=== PATIENT | male | born 1945 | race Caucasian/White ===

== ENCOUNTER → 2016-04-05 | Outpatient (CLI) | payer MEDICARE ==
--- NOTE | 2016-04-05 15:33 | KCIC ---
PROCEDURE Two-view chest HISTORY Productive cough for 2 weeks COMPARISON July 10, 2013 FINDINGS Two PA views of the chest and single lateral view of the chest are submitted. There are again thoracic spinal stimulator leads noted. There is now left base infiltrate, airspace opacity greater than previously. There is suspected emphysema. Heart size is stable, considered within normal limits. There is no pneumothorax or significant dependent pleural fluid. IMPRESSION There is left base infiltrate for which followup after treatment advised. Electronically signed by: Leonid Babcock MD (Apr 05, 2016 15:32:21)
== END | disposition home or self-care (01) ==
LOC: KCIC 14:31
PROVIDERS: ATTEND Family Medicine
DX: R91.8 Other nonspecific abnormal finding of lung field (principal)
CPT/HCPCS: 71020

== ENCOUNTER → 2016-04-15 | Outpatient (CLI) | payer MEDICARE ==
[~2016-04-15] MED LIST: IOHEXOL 300 MG/ML 100ML VIAL. IV ONE; OMEP20CA9 PO; RANI75TA95 PO; ZOLP5TAB PO
--- NOTE | 2016-04-15 16:19 | KCIC ---
PROCEDURE CT chest with without contrast. HISTORY Neoplasm hypopharynx. Pneumonia. TECHNIQUE Helical CT imaging of the chest is performed before and after 95 cc of Omnipaque 300 IV contrast. PQRS: One or more the following individualized dose reduction techniques were utilized for the study: 1. Automated exposure control. 2. Adjustment of the mA and/or kV according to patient size. 3. Use of iterative reconstruction technique. COMPARISON Two-view chest April 05, 2016. FINDINGS There are sub centimeter mediastinal and left hilar lymph nodes. No adenopathy in the chest. Three vessel coronary artery disease. The great vessels are normal caliber. No large central pulmonary embolus is seen. Cardiac size normal, no pericardial effusion. No pleural effusion. The central airways patent. Mild biapical pleural parenchymal scarring. There is mild upper lobe centrilobular emphysema. There are reticular nodular tree-in-bud opacities in the basilar left lower lobe. Opacities in the left lower lobe appear mildly improved compared to the prior two-view chest. Lungs are otherwise clear. Paramediastinal bulla are seen. Small left Zenker's diverticulum contains air. The visualized upper abdomen is unremarkable. Dorsal column stimulator is seen. There is degenerative endplate spurring in the thoracic spine. No loss of vertebral body height. IMPRESSION There are tree in bud opacities in the basilar left lower lobe suggestive of nonspecific bronchiolitis. Recommend CT chest follow up in a couple of months to document resolution. Electronically signed by: Ortiz Travis MD (Apr 15, 2016 16:18:04)
== END | disposition home or self-care (01) ==
LOC: KCIC CT 13:53
PROVIDERS: ATTEND Family Medicine
DX: J06.0 Acute laryngopharyngitis (principal); J18.9 Pneumonia, unspecified organism; I25.10 Atherosclerotic heart disease of native coronary artery without angina pectoris; J43.2 Centrilobular emphysema; K22.5 Diverticulum of esophagus, acquired; R23.8 Other skin changes
CPT/HCPCS: 71270; 82565; Q9967

== ENCOUNTER → 2017-06-06 | Outpatient (CLI) | payer MEDICARE | END | disposition home or self-care (01) | LOC: RAD 15:33 | DX: R50.9 Fever, unspecified (principal); R91.8 Other nonspecific abnormal finding of lung field | CPT/HCPCS: 71046 ==

== ENCOUNTER → 2017-06-09 | Outpatient (CLI) | payer MEDICARE | END | disposition home or self-care (01) | LOC: KCIC CT 11:03 | DX: J18.9 Pneumonia, unspecified organism (principal); Z85.818 Personal history of malignant neoplasm of other sites of lip, oral cavity, and pharynx | CPT/HCPCS: 71250 ==

== ENCOUNTER 2017-12-09 22:32 | Emergency (ER) | payer MEDICARE ==
[~2017-12-09] VITALS: Ht 177.8 cm; Wt 81.6 kg
[~2017-12-09 22:32] MED LIST changes: -IOHEXOL 300 MG/ML 100ML VIAL. IV ONE
--- NOTE | 2017-12-09 23:34 | PHYS DOC ---
Past Medical History Past Medical History: Cancer, GERD, Hypothyroid Additional Past Medical Histor: THROAT CANCER Past Surgical History: Other Additional Past Surgical Histo: L ANKLE, SPINAL Smoking: Quit Greater Than 1 Year Alcohol Use: Sober Additional Information: 17 YEARS SOBER Drug Use: None Adult General Chief Complaint Chief Complaint: FINGER INJURY HPI HPI Patient is a 72 year old male presenting after a mechanical fall. Patient notes this evening he was walking around the back of his vehicle when he tripped over the trailer hitch. Patient denies hitting his head when he fell. Patient denies loss of consciousness, headache, vomiting, dizziness, trouble with ambulation. Patient notes he hit his arm into his glasses which resulted in a laceration to the right supraorbital region. Patient notes when he fell he tried to brace himself and injured his left middle finger. Patient has been unable to bend the left middle finger since the fall. The patient notes that the rest of his fingers and hand, wrist, and arm were uninjured. The patient notes he has some pain on the right side of his thorax that increases with deep breathing since the fall. The patient denies any focal tenderness in this area. The patient notes he thinks he pulled a muscle which resulted in less pain. Patient notes he also has a small abrasion on the aspect of his right hand and right tomas. Review of Systems Review of Systems Constitutional: Denies fever or chills [] Eyes: Denies change in visual acuity, redness, or eye pain [] HENT: Denies nasal congestion or sore throat [] Respiratory: Denies cough or shortness of breath [] Cardiovascular: No chest pain or palpitations[] GI: Denies abdominal pain, nausea, vomiting, bloody stools or diarrhea [] : Denies dysuria or hematuria [] Musculoskeletal: Denies back pain or myalgias [] Integument: Denies rash. Notes abrasions to his right hand and right tomas and a laceration to his right eyebrow [] Neurologic: Denies headache, focal weakness or sensory changes [] Complete systems were reviewed and found to be within normal limits, except as documented in this note. Family History Family History Noncontributory Current Medications Current Medications Current Medications Medications (Trade) Dose Ordered Sig/Bjorn Start Time Stop Time Status Last Admin Dose Admin Lidocaine/ Epinephrine (LIDOCAINE 2%-EPI 1:100,000 multi-dose) 20 ml 1X ONCE 12/09/17 23:45 12/09/17 23:46 DC 12/10/17 00:34 20 ML Neomycin/ Polymyxin/ Bacitracin (Triple Antibiotic Ointment) 1 pkt 1X ONCE 12/10/17 02:00 12/10/17 02:01 DC 12/10/17 01:45 1 PKT Allergies Allergies Allergies Coded Allergies Type Severity Reaction Last Updated Verified No Known Drug Allergies 04/15/16 No Physical Exam Physical Exam Constitutional: Well developed, well nourished, no acute distress, non-toxic appearance. [] HENT: Normocephalic, bilateral external ears normal, oropharynx moist, no oral exudates, nose normal. [] Eyes: PERRL, EOMI, conjunctiva normal, no discharge. [] Neck: Normal range of motion, no tenderness, supple, no meningeal signs [] Cardiovascular:Heart rate regular rhythm, no murmur [] Lungs & Thorax: Bilateral breath sounds clear to auscultation. Nonfocal tenderness over the right pectoral region. No signs of trauma present.[] Abdomen: soft, nondistended, no tenderness. [] Skin: Warm, dry, no erythema, no rash. 2 cm laceration over the right supraorbital region within the eyebrow. No active bleeding. Two 0.5 cm abrasions on the medial right hand. 1 cm abrasion on the anterior right tomas [] Back: No tenderness, no CVA tenderness. [] Extremities: Left middle finger edema, erythema. Normal range of motion and no tenderness of left wrist and MCP joints of left hand. PIP on left middle finger has no range of motion and is tender to palpation. Left middle finger is neurovascularly intact. Patient able to oppose left thumb and make okay sign with left hand. Entire right extremity full range of motion, neurovascularly intact, bilateral lower extremities full range of motion, neurovascularly intact , no tenderness.[] Neurologic: Alert and oriented X 3, normal motor function, normal sensory function, no focal deficits noted. [] Psychologic: Affect normal, judgement normal, mood normal. [] Current Patient Data Vital Signs Vital Signs Date Time Temp Pulse Resp B/P (MAP) Pulse Ox O2 Delivery O2 Flow Rate FiO2 12/09/17 22:40 98.0 66 18 136/74 (94) 99 Room Air 98.0 EKG EKG [] Radiology/Procedures Radiology/Procedures Left hand x-ray- (preliminary interpretation by ED physician) no signs of any acute bony abnormality, evidence of dislocated PIP on the left third finger.. Right rib x-ray- (preliminary interpretation by ED physician)- no signs of any acute bony abnormality, no signs of pneumothorax. Course & Med Decision Making Course & Med Decision Making 72-year-old male presenting after mechanical fall in his glasses hit his arm and lacerated his right eyebrow, patient also dislocated his DIP joint on his left third phalanges. Patient denies hitting his head, or loss of consciousness during the fall. Patient had some right-sided thoracic tenderness. Acquired and reviewed x-rays of his left hand which showed a dislocated PIP and right rib x- ray which did not show any signs of rib fracture or pneumothorax. Reduce the patient's finger and repaired the laceration.Patient stable for discharge with outpatient follow-up with PCP and orthopedic surgeon. Discussed findings and plan with patient and family, who acknowledge understanding and agreement. [] Dragon Disclaimer Dragon Disclaimer This electronic medical record was generated, in whole or in part, using a voice recognition dictation system. Departure Departure Impression: Primary Impression: Eyebrow laceration Additional Impression: Finger dislocation Disposition: 01 HOME, SELF-CARE Condition: STABLE Referrals: REN MILLER MD (PCP) RAY VARELA MD Patient Instructions: Finger Dislocation, [id number], Laceration Care, Adult , Meck-gy-Clld Additional Instructions: Do not soak your wound. You may shower. Clean wound daily with soap and water. Change dressing 2 times daily. Use over the counter antibiotic ointment with each dressing change. Sutures need to be removed in 5 days. Present to your family doctor or local urgent care for removal. You may also present to the ED but it will be an additional visit/charge. After suture removal you may use Vitamin E ointment to soften the wound and prevent scarring. Splinting Splinting : Location: left third finger Pre-Made Type: metal Splint: volar Pre-Proc Neuro Vasc Exam: normal Post-Proc Neuro Vasc Exam: normal Joint Reduction Joint Reduction : Conscious Sedation: No Reduction Attempts: 1 Pre-Procedure NV Exam: Yes Post-Procedure NV Exam: Yes Progress Patient's left third finger PIP joint reduction. Local anesthetic with 5 mL 2% lidocaine digital block Laceration/Wound Repair Laceration/Wound Repair : Wound Location: face (supraorbital right eyebrow) Wound's Depth, Shape: superficial Wound Length (cm): 2 Wound Explored: no foreign body removed Irrigated w/ Saline (ccs): 300 Betadine Prep?: Yes Anesthesia: Lidocaine w/ Epi Volume Anesthetic (ccs): 2 Wound Debrided: minimal Wound Repaired With: sutures Suture Size/Type: 5:0, nylon Number of Sutures: 4 Sterile Dressing Applied?: No Splint Applied?: No Sling Applied?: No Problem Qualifiers Primary Impression: Eyebrow laceration Encounter type: initial encounter Laterality: right Qualified Codes: S01.111A - Laceration without foreign body of right eyelid and periocular area, initial encounter Additional Impression: Finger dislocation Encounter type: initial encounter Qualified Codes: S63.259A - Unspecified dislocation of unspecified finger, initial encounter LISA RICARDO DO Dec 09, 2017 23:34
[2017-12-09] MEDS ORDERED: LIDOCAINE 2%/EPI 1:100,000 20 ML VIAL. IJ ONE (23:45)
[2017-12-10 01:15] VITALS: BP 157/75
[2017-12-10] MEDS ORDERED: NEOMY/BACITR/POLYMYXIN OINT PACKET. TP ONE (02:00)
--- NOTE | 2017-12-10 07:52 | RAD ---
Portable left hand, 3 views, 12/09/2017: HISTORY: Fall, pain There is slight malalignment of the middle finger at the PIP joint level compatible subluxation. This consists of slight dorsal and ulnar displacement of the proximal end of the middle phalanx relative to the distal end of the proximal phalanx. No acute fracture is identified. IMPRESSION: Subluxation of the third finger at the PIP joint. Electronically signed by: Omi Guevara MD (12/10/2017 7:49 AM) [facility]
--- NOTE | 2017-12-10 08:28 | RAD ---
Right RIBS with chest, 3 views, 12/09/2017: HISTORY: Fall, rib pain No rib fracture is identified. There is no evidence of underlying pneumothorax, hemothorax or pulmonary infiltrate. The heart size is normal. Spinal stimulator leads extend into the lower thoracic spinal canal. IMPRESSION: No acute right rib abnormality is detected. Electronically signed by: Omi Guevara MD (12/10/2017 8:25 AM) [facility]
== END 2017-12-10 01:50 | disposition home or self-care (01) ==
LOC: ER 22:32
DX: S63.283A Dislocation of proximal interphalangeal joint of left middle finger, initial encounter (principal); S01.111A Laceration without foreign body of right eyelid and periocular area, initial encounter; R07.81 Pleurodynia; E03.9 Hypothyroidism, unspecified; K21.9 Gastro-esophageal reflux disease without esophagitis; Z87.891 Personal history of nicotine dependence; W18.09XA Striking against other object with subsequent fall, initial encounter; Y93.01 Activity, walking, marching and hiking; Y92.89 Other specified places as the place of occurrence of the external cause; Y99.8 Other external cause status
CPT/HCPCS: 12011; 26770; 71101; 73140; 99284; J3490

== ENCOUNTER → 2017-12-15 | Outpatient (CLI) | payer MEDICARE ==
[2017-12-10 01:15] VITALS: BP 157/75
[~2017-12-15] MED LIST changes: +IOHEXOL 300 MG/ML 50 ML VIAL. INT ART ONE; +LIDOCAINE 1% Multi-Dose 20 ML VIAL. ID ONE
--- NOTE | 2017-12-15 13:14 | KCIC ---
EXAM: Right glenohumeral joint injection WITH Fluoroscopic guidance DATE: 12/15/2017 10:30 AM CLINICAL HISTORY: Sharp right shoulder pain for 2 months COMPARISON: None pertinent TECHNIQUE: The patient was informed of the indications and alternatives for this procedure as well as risks and benefits. No immediate contraindication identified. The patient provided informed, written consent. Laterality was confirmed by the entire team following a time out. Following initial right glenohumeral joint localization, a suitable area was sterilely prepped and draped. Local anesthesia was administered with 1% xylocaine. With intermittent fluoroscopic observation, a 22-gauge spinal needle was advanced into the right glenohumeral joint sheath/capsule with confirmation of intra-synovial position with infusion of less than 1 cc iodinated contrast. Subsequent infusion 12 mL of a cocktail containing 9 mL Isovue-300, 6 mL of saline and 5 mL of lidocaine 1%. Hemostasis with local pressure. Local clinical exam negative for immediate complication. Patient informed re local potential signs or symptoms that may indicate need to return to ER/Ordering physician for further evaluation. Patient informed re precautionary measures after intra-synovial injection of anesthetic. Patient expressed understanding. Performing Physicians: Dr. Dariel Garcia Blood Loss: 0 cc Total Fluoroscopy time: 9 seconds Total spot images taken: 0 Total fluoroscopy save images taken: 4 IMPRESSION: Successful intra-synovial injection of iodinated contrast pre-CT arthrogram per clinical request. Electronically signed by: Paulo Garcia MD (12/15/2017 1:11 PM) [facility]
--- NOTE | 2017-12-15 15:23 | KCIC ---
EXAM: CT ARTHROGRAM, right shoulder DATE: 12/15/2017 11:30 AM CLINICAL HISTORY: Right shoulder pain COMPARISON: None TECHNIQUE: Following intra-articular injection of dilute iodinated contrast, axial source images were obtained through the right shoulder. Coronal and sagittal reformatted images were generated. FINDINGS: Joint capsule: Iatrogenic distention without synovial nodularity. No intra-articular loose body. Periarticular fluid: Negative ganglion. There is contrast distention of the subacromial-subdeltoid bursa. Tendon integrity: There is a full-thickness tear of the anteriormost fibers of the supraspinatus tendon measuring approximately 1.2 cm in AP dimension. This results in contrast extension from the joint into the subacromial-subdeltoid bursa. There is no fatty atrophy of the rotator cuff muscle belly. Biceps tendon intact, anatomically positioned at the bicipital groove. Labrum: There is partial contrast extension between the labral-chondral junction of the anterior inferior glenoid which may represent prominent sulcus or short segment partial labral detachment. Articular cartilage: Mild anterior inferior glenoid chondral thinning without discrete full-thickness defect. Bone: Negative Hill-Sachs defect. Minimal AC joint osteoarthritis. Type I acromial undersurface and negative lateral downsloping. Negative inferior acromial enthesophyte. Negative imaging findings of fracture or AVN. Mild emphysematous changes at the right lung are partially profiled. IMPRESSION: 1. Short segment full-thickness rotator cuff tear of the anterior fibers of the supraspinatus tendon. 2. This results in contrast leakage into the subacromial-subdeltoid bursa. 3. Partial contrast extension between the labrum and cartilage of the anterior inferior glenoid, possibly prominent sulcus or short segment partial labral detachment. Electronically signed by: Paulo Garcia MD (12/15/2017 3:20 PM) [facility]
== END | disposition home or self-care (01) ==
LOC: KCIC 10:16
PROVIDERS: ATTEND Orthopaedic Surgery
DX: M75.101 Unspecified rotator cuff tear or rupture of right shoulder, not specified as traumatic (principal)
CPT/HCPCS: 73040; 73201; Q9967

== ENCOUNTER → 2017-12-30 | Outpatient (CLI) | payer MEDICARE ==
[2017-12-10 01:15] VITALS: BP 157/75
[~2017-12-30] MED LIST changes: -IOHEXOL 300 MG/ML 50 ML VIAL. INT ART ONE; -LIDOCAINE 1% Multi-Dose 20 ML VIAL. ID ONE; +REGADENOSON 0.4 MG/5 ML DISP.SYRIN. IV ONE
--- NOTE | 2017-12-30 13:07 | RAD ---
MR#: [id number] Date of Study: 12/30/2017 Ordering Physician: ANGELITA LUNA, Referring Physician: CANDE PARK Tech: BENJI Herrera APPROVED REPORT Test Type: Pharmacological Stress Nurse/Tech: Marybeth Rodriguez R.N. Test Indications: chest pain Cardiac History: High cholesterol Medications: Zocor Medical History: See Electronic Medical Record Resting ECG: s. ulises Resting Heart Rate: 47 bpm Resting Blood Pressure: 139/74mmHg Pretest Chest Pain: No chest pain Nurse/Tech Notes S1S2, lungs sound clear Consent: The procedure was explained to the patient in lay terms. Informed consent was witnessed. Augustus eout was entered into [employer]. History and Stress Test performed by Marybeth Rodriguez R.N. Pharm. Details Pharmacologic stress testing was performed using 0.4mg per 5ml of regadenoson given intravenously ove r 7-10 seconds. Stress Symptoms No chest pain or symptoms. POST EXERCISE Reason for Termination: Infusion complete Target HR: 124 Max HR: 61 bpm Max Blood Pressure: 115/69mmHg Blood Pressure response to exercise: Normal blood pressure response during stress. Chest Pain: No. Arrhythmia: No. ST Change: No. INTERPRETATION Stress EKG Conclusion: Baseline EKG showed sinus rhythm. No ischemic changes at peak stress. No arr hythmias. Imaging Protocol IMAGE PROTOCOL: Rest Tc-99m/stress Tc-99m 1 day Rest: Stress: Viability: Radiopharm.Tc99m [id number] Sestamibi Zyrm09zHm 33.1mCi Duration 17min. 13min. Img Date 12/30/2017 12/30/2017 Inj-Img [id number]. 60min. Rest Admin Site:IV - Right AntecubitalAdministrator:RENE Jose, ARRT (R)(N) Stress Admin Site: IV - Right AntecubitalAdministrator: RENE Jose, ARRT (R)(N) STRESS DATA End Diast. Vol.89.0mlLVEDV index BSA44.0ml End Syst. Vol.27.0mlLVESV index BSA13.0ml Myocardial Qgos509.0gEject. Keggccbh62.0% Stress Scores Regional WT1.00Summed WT17.00 Regional WM0.00Summed WM3.00 Study quality was good. Left Ventricular size was Normal at Rest and Stress. Lung uptake was . Left Ventricular ejection fraction is 70%. The rest and stress images show normal perfusion, normal contraction and thickening. LV Perf. Quant 17 Seg. SSS2.00 17 Seg. SRS0.00 17 Seg. SDS2.00 Stress Defect Extent (% LAD)0.00Rest Defect Extent (% LAD)0.00Rev. Defect Extent (% LAD)0.00 Stress Defect Extent (% LCX) 7.50Rest Defect Extent (% LCX)0.00Rev. Defect Extent (% LCX)7.50 Stress Defect Extent (% RCA)0.00Rest Defect Extent (% RCA)0.00Rev. Defect Extent (% RCA)0.00 Stress Defect Extent (% MYA)2.40Rest Defect Extent (% MYA)0.00Rev. Defect Extent (% MYA)2.40 Conclusion 1. Regadenoson cardioisotope stress test did not show any evidence of ischemia or infarct. 2. Normal left ventricular systolic function with ejection fraction calculated at 70%. 3. Low risk for cardiac events. Signed by : Herson Luo, Electronically Approved : 12/30/2017 13:05:48
== END | disposition home or self-care (01) ==
LOC: NM 09:47
PROVIDERS: ATTEND Internal Medicine Cardiovascular Disease
DX: R07.9 Chest pain, unspecified (principal); E78.00 Pure hypercholesterolemia, unspecified
CPT/HCPCS: 78452; 93017; 96374; 96375; 96376; A9500; J2785

== ENCOUNTER → 2018-08-30 | Outpatient (CLI) | payer MEDICARE ==
[~2018-08-30] MED LIST changes: +GABA300C18 PO; +LATA2.5D3 EACHEYE; +LEVO125T5 PO; +LOVA20TA2 PO; +NAPR220C4 PO; +OMEP20CA10 PO; -OMEP20CA9 PO; +OMEP40CA5 PO; +RANI-348 PO; +RANI150T2 PO; -RANI75TA95 PO; -REGADENOSON 0.4 MG/5 ML DISP.SYRIN. IV ONE; +TIMO5SOL4 EACHEYE
--- NOTE | 2018-08-31 07:30 | PAIN ---
DATE OF SERVICE: 08/30/2018 INITIAL CONSULTATION FOR PAIN CLINIC CHIEF COMPLAINT: Low back and right lower extremity pain. HISTORY OF PRESENT ILLNESS: This is a 73-year-old male who presents with history of pain in the low back and right leg since about 1989. The patient had lumbar surgery in 1998 and after multiple years of pain and eventually had a spinal cord stimulator placed in 2004 and eventually, the paraesthesia became somewhat uncomfortable. He stopped using it for several years and turned it on recently over the past year and started using it again, which he feels that it has been helpful but not 100% and he has to turn it up so high that it becomes uncomfortable again. The patient has talked with his [employer] aircraft sales representative and they have tuned it as best they can. Again, it is an older model generator and is doing all they can at this point. The patient reports the pain is constant, sharp, stabbing, throbbing, shooting in the low back, right hip, posterior gluteus, posterior thigh, lateral thigh and posterior calf on the right side specifically. Left side is generally pain free, is worse with walking, standing, changing positions. Again the stimulator is only staying charged for about a day or two after he charged it. The patient reports it is awakening him from sleep at night at least once or twice, does not affect his bowel or bladder control but does affect his ability to walk, although he is not using any assistive devices. The patient has had in the past epidural injections, trigger point injections, physical therapy, multiple times, chiropractic treatments multiple times and again the spinal cord stimulator, which was placed in 2004. The patient rates his disability from 0-10, 10 being the worst, is a 6-7 with family home responsibilities and recreation, 6 with social activity, occupation and sexual behavior, 2 with self-care and 1 with life support activities. 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 PAST SURGICAL HISTORY: Previous surgeries include lumbar laminectomy in 1998, ankle surgery, tonsillectomy, nose surgery, spinal cord stimulator placed in 2004 and cataract extractions as well. CURRENT MEDICATIONS: Include Aleve, gabapentin, latanoprost, levothyroxine, lovastatin, omeprazole, acetaminophen, zolpidem, timolol eyedrops and Zantac. ALLERGIES: The patient has no known drug allergies. FAMILY HISTORY: Significant for cancers esophageal and lung and liver cancer. SOCIAL HISTORY: The patient does not drink alcohol, has not for 17 years. He is a recovering alcoholic. Does not use any tobacco products. He quit 15 years ago, not use any illegal, illicit or recreational drugs. He is , lives with his spouse and works as a sailboat career. The patient lives locally in [place]. REVIEW OF SYSTEMS: The patient's review of systems is positive for those items mentioned in history of present illness. All systems reviewed and otherwise negative. It is complete, full and well documented on the patient's chart. PHYSICAL EXAMINATION: VITAL SIGNS: Today, the patient's blood pressure is 130/69, pulse 60, respirations 16 and temperature is 98.1 degrees Fahrenheit. Height is 5 feet 10 inches and weight is 181 pounds. GENERAL: The patient is awake, alert, oriented, appropriate and very pleasant demeanor. HEENT: Head shows normocephalic and atraumatic. Extraocular movements are intact and symmetrical. Oral cavity: Mucous membranes moist and pink. Dentition is intact. NECK: Shows anterior throat supple without palpable lymphadenopathy noted. Swallow reflex symmetrical. CHEST: Shows normal with inspection. Breath sounds clear to auscultation bilaterally. HEART: Shows S1 and S2 clear. No murmurs auscultated. ABDOMEN: Soft, nontender and nondistended. No palpable organomegaly is noted. No rebound or guarding demonstrated. BACK: Shows spine grossly in the midline. Normal appearing thoracic kyphosis and some slight flattening of the lumbar lordotic curvature with well-healed surgical scar in the mid upper thoracic distribution as well as in the lumbar distribution and over the right posterior gluteus. Easily palpable spinal cord stimulator generator, which is mobile but nontender with well-healed surgical scars. Also, the patient shows good rotational motion of the lumbar spine, both laterally as well as extension and flexion without significant increase of pain. The paraspinous muscles show symmetrical on inspection with palpation shows some moderate tenderness diffusely bilaterally with palpation but only diffusely without radiation. No tenderness over the spinous processes, sacrum or sacroiliac regions. EXTREMITIES: The patient shows lower extremity deep tendon reflexes at 2+ in the patellar, 1+ tendo-calcaneus tendons are equal. Motor exam is strong with 5/5 dorsiflexion, extension, quadriceps and hamstring flexion. Peripheral pulses are 1+ posterior tibia. No peripheral edema is noted. Gaenslen's and Morgan's maneuvers are negative bilaterally as his straight leg raise bilaterally. SKIN: The patient's skin shows Warm and dry, good turgor. No edema. No sores, rashes or bruising. IMPRESSION: This is a 73-year-old male with: 1. 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 The patient using his spinal cord stimulator currently, although with only moderate decrease in pain. 2. 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 3. Arthritis. 4. Gastroesophageal reflux. 5. Peripheral neuropathy. PLAN: Options were discussed with the patient including replacement of the spinal cord stimulator system, replacement of the leads, replacement of the battery itself and we will contact his [employer] aircraft sales representative to explore a new spinal cord stimulator generator as this is an older model and is having difficulty holding it charge as well and may need to be replaced anyway. We will contact his [employer] sales representative. I did discuss with him that if he needed it replaced to have this replaced that we could do that for him if he chooses, leave this up to him and he will decide what he would like to do in the future and follow up on as needed basis at this time. RHONA MURPHY MD DR: GIAN/alexx JOB#: [id number] / [id number] REN Kaiser MD
== END | disposition home or self-care (01) ==
LOC: PNCL 10:42
PROVIDERS: ATTEND Anesthesiology
DX: M54.16 Radiculopathy, lumbar region (principal); M79.661 Pain in right lower leg; K21.9 Gastro-esophageal reflux disease without esophagitis; G62.9 Polyneuropathy, unspecified; M19.90 Unspecified osteoarthritis, unspecified site; Z92.3 Personal history of irradiation
CPT/HCPCS: G0463

== ENCOUNTER → 2018-12-15 | Outpatient (CLI) | payer MEDICARE ==
--- NOTE | 2018-12-15 15:38 | KCIC ---
Exam : Carotid Duplex with Grayscale Ultrasound and Spectral and Color Doppler Analysis 12/15/2018 3:33 PM Clinical Indications: Calcifications, history of throat cancer. Former smoker. Comparison study: None available. PQRS Compliance Statement - Stenosis calculations for CT, MR and conventional angiography are based upon measurement of the distal ICA diameter in accordance with the NASCET methodology. Stenosis calculations for carotid ultrasound studies are derived from validated velocity criteria which are known to correlate with the NASCET methodology. Findings: The common, internal and external carotid arteries were examined by grayscale, color and spectral Doppler ultrasound. Mild diffuse atherosclerotic vascular disease is seen. Vertebral flows antegrade. Some atherosclerotic plaquing is seen in the bilateral carotid bulbs without high-grade visual stenosis on color Doppler imaging. The following are the velocities and ratios in the carotid arteries on both sides: RIGHT ICA PV: 76cm/sec RIGHT CCA PV: 83cm/sec RIGHT ICA ED: 24cm/sec RIGHT IC/CCPV: Less than 2 RIGHT VERTEBRAL: antegrade flow LEFT ICA PV: 78cm/sec LEFT CCA PV: 93cm/sec LEFT ICA ED: 24cm/sec LEFT IC/CCPV: Less than 2 LEFT VERTEBRAL: antegrade flow <50% ICA Stenosis: PSV < 125cm/s (EDV < 40cm/s; SVR < 2.0) 50-69% ICA Stenosis: PSV < 125-229cm/s (EDV 40-99cm/s; SVR 2.0-3.9) >70% ICA Stenosis: PSV > 230cm/s (EDV >100cm/s; SVR >4.0) Impression: Less than 50% stenosis of the bilateral internal carotid arteries by ultrasound criterion. Mild diffuse atherosclerotic vascular disease noted. Electronically signed by: Issa De Leon MD (12/15/2018 3:35 PM) [id number]
--- NOTE | 2018-12-15 16:49 | KCIC ---
EXAM: CT Chest without IV contrast CLINICAL HISTORY: CORONARY CALCIFICATIONS COMPARISON: None. TECHNIQUE: CT of the chest without intravenous contrast. Axial, coronal and sagittal reformatted images were generated. ---PQRS compliance statement - One or more of the following individualized dose reduction techniques were utilized for this study: 1. Automated exposure control 2. Adjustment of the mA and/or kV according to patient size 3. Use of iterative reconstruction technique--- FINDINGS: Lack of intravenous contrast limits evaluation of solid organs, vasculature, and lymph nodes. Chest: Heart is not enlarged. Coronary artery calcifications are seen. No pericardial effusion. No pleural effusion. No pneumothorax. Emphysematous changes are seen bilaterally. Groundglass opacities and tree-in-bud opacities are seen in the left lower lobe, compared to 06/09/2017 these are significantly improved. No thoracic lymphadenopathy. Visualized Upper abdomen: A few colonic diverticula are seen. Left interpolar renal cystic lesion is partially profiled. Bones: Degenerative changes of spine are seen. Spinal stimulator leads are partially profiled. No aggressive osseous lesion. Vascular calcifications are seen. IMPRESSION: 1. Groundglass airspace opacities and tree-in-bud opacities in the left lower lobe have significantly improved compared to 06/09/2017. 2. Emphysematous changes are seen. 3. Coronary calcifications are seen. Electronically signed by: Paulo Garcia MD (12/15/2018 4:46 PM) [facility]
== END | disposition home or self-care (01) ==
LOC: KCIC CT 14:39
PROVIDERS: ATTEND Family Medicine
DX: I65.23 Occlusion and stenosis of bilateral carotid arteries (principal); I25.10 Atherosclerotic heart disease of native coronary artery without angina pectoris; J43.9 Emphysema, unspecified; J98.4 Other disorders of lung; K57.30 Diverticulosis of large intestine without perforation or abscess without bleeding; Z87.891 Personal history of nicotine dependence; Z85.09 Personal history of malignant neoplasm of other digestive organs
CPT/HCPCS: 71250; 93880

== ENCOUNTER → 2019-11-21 | Outpatient (CLI) | payer MEDICARE ==
[~2019-11-21] MED LIST changes: -OMEP20CA10 PO; +OMEP20CA16 PO; +OMEP40CA45 PO; -OMEP40CA5 PO; -RANI-348 PO; +RANI-369 PO
--- NOTE | 2019-11-22 09:01 | KCIC ---
Examination: CT low-dose lung screening HISTORY: History of lung cancer screening COMPARISON: None available TECHNIQUE: Axial CT images of the chest was performed without contrast using low-dose CT protocol. Coronal and sagittal reformats are performed Exposure: One or more of the following individualized dose reduction techniques were utilized for this examination: 1. Automated exposure control 2. Adjustment of the mA and/or kV according to patient size 3. Use of iterative reconstruction technique FINDINGS: The central airways are patent. The heart size grossly appears unremarkable. Examination limited lack of IV contrast. Coronary artery calcifications. Moderate bilateral lung emphysematous changes. Mild prominent bibasilar interstitial lung markings likely chronic interstitial changes. Mild bronchiectatic changes. There are few nodular opacities identified in the left upper lobe lung with largest measuring 6 mm. The visualized noncontrasted liver, spleen, adrenals grossly appears unremarkable. Moderate degenerative changes thoracic spine. IMPRESSION: 1. Few nodular opacities identified in the left upper lobe lung with largest measuring 6 mm. Lung RADS Category 3. Recommend 6 month follow-up CT exam. 2. Moderate bilateral lung emphysematous changes. 3. Bibasilar interstitial changes with minimal bibasilar bronchiectatic changes. Electronically signed by: Jose Lam MD (11/22/2019 8:58 AM) [id number]
== END ==
LOC: KCIC CT 12:29
PROVIDERS: ATTEND Clinical Nurse Specialist
DX: Z12.2 Encounter for screening for malignant neoplasm of respiratory organs (principal); C12 Malignant neoplasm of pyriform sinus; J43.9 Emphysema, unspecified; J47.9 Bronchiectasis, uncomplicated; R91.8 Other nonspecific abnormal finding of lung field; Z87.891 Personal history of nicotine dependence
CPT/HCPCS: G0297

== ENCOUNTER → 2020-11-07 | Outpatient (CLI) | payer MEDICARE ==
[~2020-11-07] MED LIST changes: -OMEP40CA45 PO; +OMEP40CA7 PO
--- NOTE | 2020-11-07 17:28 | KCIC ---
EXAM: CHEST 2 VIEWS. HISTORY: Cough, aspiration pneumonia. COMPARISON: 12/15/2018, 12/09/2017. FINDINGS: Frontal and lateral views of the chest are obtained. There is an airspace infiltrate in the left lower lobe. There is no pneumothorax or pleural effusion. The heart is not enlarged. Spinal stimulator electrodes are noted. IMPRESSION: 1. Left lower lobe pneumonia. Follow-up to resolution is recommended. Electronically signed by: Giovani Minaya MD (11/07/2020 5:26 PM) [id number]
== END ==
LOC: KCIC 14:35
PROVIDERS: ATTEND Family Medicine
DX: J18.9 Pneumonia, unspecified organism (principal); R91.8 Other nonspecific abnormal finding of lung field
CPT/HCPCS: 71046